=== PATIENT | female | born 1960 | race Two or more races ===

== ENCOUNTER 2024-02-17 11:24 | Emergency (ER) | payer OTHER ==
[~2024-02-17] VITALS: Ht 152.4 cm; Wt 65.8 kg
[2024-02-17] MEDS ORDERED: TENORMIN100 M1 PO (12:01)
[2024-02-17] MEDS ORDERED: ACID REDUCER20 M1 (12:02)
[2024-02-17] MEDS ORDERED: AMLODIPINE-OLM1 EAC1 PO (12:03)
[2024-02-17] MEDS ORDERED: ATORVASTATIN CA10 MG PO (12:04)
[2024-02-17] MEDS ORDERED: SUMATRIPTAN SUCCINATE 6 MG/0.5 ML VIAL SUBCUTANEO ONE (12:15)
[2024-02-17] MEDS ORDERED: BUTALB/ACETAMINOPHEN/CAFFEINE 1 TAB TABLET PO ONE (12:15)
[2024-02-17] MEDS ORDERED: BUTALB-ACETAMI1 EACH PO (14:11)
== END 2024-02-17 13:45 | disposition home or self-care (01) ==
LOC: ER 11:25
DX: G43.809 Other migraine, not intractable, without status migrainosus (principal); I10 Essential (primary) hypertension; E11.9 Type 2 diabetes mellitus without complications
CPT/HCPCS: 70450; 96372; 99284; J3490

== ENCOUNTER 2024-08-04 09:43 | Outpatient (CLI) | payer OTHER ==
[~2024-08-04 09:43] MED LIST: ACID REDUCER20 M1; AMLODIPINE-OLM1 EAC1 PO; ATORVASTATIN CA10 MG PO; BUTALB-ACETAMI1 EACH PO; TENORMIN100 M1 PO
== END 2024-08-04 09:49 | disposition home or self-care (01) ==
LOC: EKG 09:43
DX: I10 Essential (primary) hypertension (principal)

== ENCOUNTER 2024-09-08 14:40 | Outpatient (CLI) | payer OTHER | END 2024-09-08 14:44 | disposition home or self-care (01) | LOC: RAD 14:40 | DX: M19.011 Primary osteoarthritis, right shoulder (principal) ==